=== PATIENT | female | born 1995 | race Caucasian/White ===

== ENCOUNTER → 2021-10-10 | Outpatient (CLI) | payer BC ==
--- NOTE | 2021-10-11 09:00 | CA ---
Transthoracic Echo Report Name: Richa Saavedra Age: 26 Gender: F : 1995 Exam Date: 10/10/2021 08:37 Exam Location: [facility] Ht (in): 66 Wt (lb): 226 Ordering Physician: Park Mccall MD Attending/Referring Phys: Chief Lifestyle Officer Kayla Mir RDCS Procedure CPT: Indications: R00.2 palpitations Cardiac Hx: Fm hx of hypertrophic cardiomyopathy. Technical Quality: Good Contrast 1: Total Dose (mL): Contrast 2: Total Dose (mL): MEASUREMENTS (Male / Female) Normal Values 2D ECHO LV Diastolic Diameter PLAX 3.5 cm 4.2 - 5.9 / 3.9 - 5.3 cm LV Systolic Diameter PLAX 2.6 cm IVS Diastolic Thickness 1.0 cm 0.6 - 1.0 / 0.6 - 0.9 cm LVPW Diastolic Thickness 1.0 cm 0.6 - 1.0 / 0.6 - 0.9 cm LV Relative Wall Thickness 0.6 RV Internal Dim ED PLAX 2.7 cm LA Volume 28.0 cm??? 18 - 58 / 22 - 52 cm??? M-MODE LV Diastolic Diameter MM 4.9 cm 4.2 - 5.9 / 3.9 - 5.3 cm LV Systolic Diameter MM 2.2 cm IVS Diastolic Thickness MM 1.0 cm 0.6 - 1.0 / 0.6 - 0.9 cm LVPW Diastolic Thickness MM 1.2 cm 0.6 - 1.0 / 0.6 - 0.9 cm LV Relative Wall Thickness MM 0.5 0.24 - 0.42 / 0.22 - 0.42 LV Mass Index MM 94.8 g/m??? 49 - 115 / 43 - 95 g/m??? Aortic Root Diameter MM 2.5 cm LA Systolic Diameter MM 2.8 cm LA Ao Ratio MM 1.1 MV E Point Septal Separation 0.5 cm AV Cusp Separation MM 1.9 cm DOPPLER AV Peak Velocity 149.1 cm/s AV Peak Gradient 8.9 mmHg MV Area PHT 5.1 cm??? MR Peak Velocity 165.5 cm/s MR Peak Gradient 11.0 mmHg Mitral E Point Velocity 70.7 cm/s Mitral A Point Velocity 84.2 cm/s Mitral E to A Ratio 0.8 MV Deceleration Time 147.8 ms MV E' Velocity 9.2 cm/s Mitral E to MV E' Ratio 7.7 TR Peak Velocity 202.4 cm/s TR Peak Gradient 16.4 mmHg Right Ventricular Systolic Press 21.4 mmHg FINDINGS Left Ventricle Normal left ventricular size, wall thickness, systolic function with no obvious regional wall motion abnormalities. Normal left ventricular diastolic filling pattern for age. The ejection fraction is visually estimated at 55-60 %. Right Ventricle The right ventricle is normal in size and function. Right Atrium The right atrium is normal in size. Left Atrium The left atrium is normal in size. Mitral Valve Structurally normal mitral valve without significant stenosis or prolapse. There is trace mitral regurgitation. Aortic Valve Structurally normal aortic valve without significant sclerosis or stenosis. There is no aortic regurgitation. Tricuspid Valve Structurally normal tricuspid valve without significant stenosis. Pulmonary artery systolic pressure is normal. Trace tricuspid regurgitation. Pulmonic Valve Structurally normal pulmonic valve without significant stenosis. There is no pulmonic regurgitation. Pericardium Normal pericardium without effusion. Aorta Normal aortic root dimension. CONCLUSIONS Normal left ventricular dimension and systolic function Poorly visualized aortic valve. The valve is probably trileaflet See above for further details Previewed by: Dr. Dilan Mejia MD (Electronically Signed) Final Date: 11 Oct 2021 08:59
== END | disposition home or self-care (01) ==
LOC: RADECHMAIN 08:14
PROVIDERS: ATTEND Internal Medicine
DX: I07.1 Rheumatic tricuspid insufficiency (principal)
CPT/HCPCS: 93306

== ENCOUNTER → 2023-04-15 | Outpatient (CLI) | payer BC ==
--- NOTE | 2023-04-17 07:23 | XR ---
EXAMINATION TYPE: XR wrist complete LT DATE OF EXAM: 04/15/2023 4:31 PM CLINICAL INDICATION:Female, 27 years old with history of [id number] LT WRIST PAIN; [facility] COMPARISON: None TECHNIQUE: XR wrist complete LT; examined in the Frontal, navicular, lateral, and oblique. FINDINGS: No acute osseous pathology, joint dislocation, or joint effusion. No evidence of any soft tissue swelling is seen. IMPRESSION: No acute osseous pathology.
== END | disposition home or self-care (01) ==
LOC: RADXRYALE 16:15
PROVIDERS: ATTEND Internal Medicine
DX: M25.532 Pain in left wrist (principal)